=== PATIENT | male | born 1960 | race African-American/Black ===

== ENCOUNTER 2017-12-23 10:26 | Emergency (ER) | payer MEDICARE, MEDICAID ==
[~2017-12-23] VITALS: Ht 177.8 cm; Wt 88.0 kg
[2017-12-23 10:27] VITALS: BP 150/98
[2017-12-23 11:19] LABS: BG BASE EXCESS -1.8 mmol/L (-2.0-2.0); BG FRACTION INSPIRED OXYGEN 21; BG HCO3 ACT 21.5 mmol/L (22.0-26.0); BG METHEMOGLOBIN 0.3 % (0.0-1.5); BG OXYGEN SATURATION 94.8 % (92.0-98.5); BG OXYHEMOGLOBIN 90.7 % (94.0-97.0); BG PCO2 33.3 mmHg (35.0-45.0); BG PH 7.428 (7.350-7.450); BG PO2 70.5 mmHg (75.0-100.0); BG SAMPLE SITE RIGHT RADIAL; BG VENT MODE ROOM AIR
[2017-12-23 11:41] LABS: CHLORIDE 93 mEq/L (98-107)
[2017-12-23 11:43] LABS: PROTHROMBIN TIME 10.6 sec (9.4-11.6)
[2017-12-23 11:45] LABS: EOSINOPHILS % 2.1 % (0.0-5.0); HEMATOCRIT. 46.6 % (42.0-52.0); HEMOGLOBIN. 16.5 g/dL (14.0-18.0); LYMPHOCYTES % 23.7 % (20.0-50.0); MEAN CORPUSCULAR HEMOGLOBIN 31.8 pg (28.0-32.0); MEAN CORPUSCULAR VOLUME 89.9 fL (80.0-94.0); MEAN PLATELET VOLUME 9.2 fl (7.4-10.4); MONOCYTES % 7.6 % (2.0-8.0); NEUTROPHILS % 65.6 % (40.0-76.0); PLATELET 189 x1000/uL (130-400); RED BLOOD CELL COUNT 5.18 mill/uL (4.7-6.1); RED CELL DISTRIBUTION WIDTH 13.4 % (11.6-14.6)
[2017-12-23] MEDS ORDERED: SODIUM CHLORIDE 0.9% 1,000 ML IV ONE (11:52)
[2017-12-23] MEDS ORDERED: INSULIN REGULAR (HUMULIN R) 300UNITS/3ML IV ONE (12:00)
[2017-12-23 12:05] LABS: BETA HYDROXYBUTYRATE 2.7 mMol/L (0.0-0.3)
== END 2017-12-23 13:36 | disposition home or self-care (01) ==
LOC: ER 10:41
DX: E11.65 Type 2 diabetes mellitus with hyperglycemia (principal); Z91.19 Patient's noncompliance with other medical treatment and regimen; E86.0 Dehydration; E87.8 Other disorders of electrolyte and fluid balance, not elsewhere classified; R42 Dizziness and giddiness; I10 Essential (primary) hypertension; Z76.0 Encounter for issue of repeat prescription; K85.90 Acute pancreatitis without necrosis or infection, unspecified; F17.210 Nicotine dependence, cigarettes, uncomplicated; F12.90 Cannabis use, unspecified, uncomplicated; Z79.4 Long term (current) use of insulin
CPT/HCPCS: 36415; 36600; 71045; 80053; 82010; 82375; 82805; 82962; 83690; 83735; 83880; 84484; 85025; 85610; 85730; 93005; 96361; 96374; 99285; J1815; J7030